=== PATIENT | female | born 1950 | race Caucasian/White ===

== ENCOUNTER 2018-09-23 11:26 | Emergency (ER) | payer MEDICARE ==
[2018-09-23] MEDS ORDERED: ASPIRIN 81 MG TABLET, CHEWABLE PO ONE (11:43)
[2018-09-23] MEDS ORDERED: ONDANSETRON HCL INJ/PF 4 MG/2 ML SDV IV ONE ×2 (11:43→13:07)
--- NOTE | 2018-09-23 11:45 | ER Document Report ---
ED Medical Screen (RME) - General Chief Complaint: Chest Pain Stated Complaint: CHEST PAIN Time Seen by Provider: 09/23/18 11:37 TRAVEL OUTSIDE OF THE [place] IN LAST 30 DAYS: No - HPI Notes: 09/23/18 11:45 Patient is a 67 yr old female that presents to the emergency department by private car for chief complaint of right-sided shoulder pain that radiates to her left arm started approximately 7:00 this morning, constant, denies any trauma. Patient has a medical history of stage IV metastatic breast cancer, diabetes, hypertension and hypercholesterolemia. Patient is [place] from [place] of [place]. Patient reports she does feel nauseous, no vomiting or diarrhea. No abdominal pain, no fevers and chills. Tried Advil without full relief. ROS: Other than noted above, the 12 point review of systems was reviewed with the patient and were negative, all pertinent findings are included in the HPI. PHYSICAL EXAMINATION: Vital signs reviewed. GENERAL: Well-appearing, well-nourished and in no acute distress. HEAD: Atraumatic, normocephalic. EYES: Pupils equal round extraocular movements intact, conjunctiva are normal. ENT: Nares patent NECK: Normal range of motion CV: Heart regular rate and rhythm LUNGS: No respiratory distress Musculoskeletal: Tenderness to right paraspinal to shoulder pain, li ismited ROM. normal range of motion NEUROLOGICAL: Normal speech PSYCH: Normal mood, normal affect. MDM: Patient seen and examined for rapid initial assessment. Vital signs reviewed. A comprehensive ED assessment and evaluation of the patient, analysis of test results and completion of the medical decision making process will be conducted by additional ED providers. *Note is created using voice recognition software and may contain spelling, syntax or grammatical errors. - Related Data Allergies/Adverse Reactions: No Known Allergies Allergy (Unverified 09/23/18 11:28) Physical Exam - Vital signs Vitals: Temp Pulse Resp BP Pulse Ox 98.1 F 72 18 154/90 H 98 09/23/18 11:28 09/23/18 11:28 09/23/18 11:28 09/23/18 11:28 09/23/18 11:28 Course - Vital Signs Vital signs: Temp Pulse Resp BP Pulse Ox 98.1 F 72 18 154/90 H 98 09/23/18 11:28 09/23/18 11:28 09/23/18 11:28 09/23/18 11:28 09/23/18 11:28
[2018-09-23 12:56] LABS: HEMATOCRIT 22.4 % (36.0-47.0); MEAN CORPUSCULAR HEMOGLOBIN 34.2 pg (27.0-33.4); MEAN CORPUSCULAR HGB CONC 35.6 g/dL (32.0-36.0); MEAN CORPUSCULAR VOLUME 96 fl (80-97); PLATELET COUNT 109 10^3/uL (150-450); RED BLOOD COUNT 2.33 10^6/uL (3.72-5.28); RED CELL DISTRIBUTION WIDTH 15.8 % (11.5-14.0)
[2018-09-23] MEDS ORDERED: FENTANYL CITRATE INJ/PF 100 MCG/2 ML AMPUL IV ONE ×2 (13:07→13:58)
[2018-09-23 13:19] LABS: ALANINE AMINOTRANSFERASE 25 U/L (9-52); ALBUMIN 3.6 g/dL (3.5-5.0); ALKALINE PHOSPHATASE 77 U/L (38-126); ANION GAP 8 (5-19); ASPARTATE AMINO TRANSFERASE 27 U/L (14-36); BILIRUBIN,DIRECT 0.2 mg/dL (0.0-0.4); BILIRUBIN,TOTAL 0.4 mg/dL (0.2-1.3); BLOOD UREA NITROGEN 27 mg/dL (7-20); CALCIUM 8.6 mg/dL (8.4-10.2); CARBON DIOXIDE 25 mmol/L (22-30); CHLORIDE 101 mmol/L (98-107); CREATINE KINASE 73 U/L (30-135); GLUCOSE 203 mg/dL (75-110); POTASSIUM 4.4 mmol/L (3.6-5.0)
[2018-09-23] MEDS ORDERED: NORMAL SALINE 1000 ML 1,000 ML IV ONE (13:24)
[2018-09-23 13:26] LABS: ABSOLUTE LYMPHOCYTES# (MANUAL) 0.8 10^3/uL (0.5-4.7); ABSOLUTE MONOCYTES # (MANUAL) 0.1 10^3/uL (0.1-1.4); BASOPHILS % (MANUAL) 0 % (0-2); EOSINOPHILS % (MANUAL) 2 % (0-6); LYMPHOCYTES % (MANUAL) 46 % (13-45); MONOCYTES % (MANUAL) 6 % (3-13); SEGMENTED NEUTROPHILS % (MAN) 46 % (42-78); TOTAL CELLS COUNTED 50
[2018-09-23 13:31] LABS: CREATINE KINASE MB 0.66 ng/mL (<4.55); TROPONIN I 0.024 ng/mL
[2018-09-23 13:34] LABS: ANISOCYTOSIS 2+; OVALOCYTES SLIGHT; POLYCHROMASIA SLIGHT
[2018-09-23 13:35] LABS: TEAR DROP CELLS SLIGHT
[2018-09-23 13:36] LABS: WHITE BLOOD COUNT 1.7 10^3/uL (4.0-10.5)
[2018-09-23 13:38] LABS: PLATELET COMMENT ADEQUATE
--- NOTE | 2018-09-23 14:25 | RADIOLOGY REPORT (SQ) ---
EXAM DESCRIPTION: CTA CHEST COMPLETED DATE/TIME: 09/23/2018 1:48 pm REASON FOR STUDY: right scapular pain, hx of breast ca w bone mets COMPARISON: None. TECHNIQUE: CT scan of the chest performed using helical scanning technique with dynamic intravenous contrast injection. Images reviewed with lung, soft tissue and bone windows. Reconstructed coronal and sagittal MPR images reviewed. Additional 3 dimensional post-processing performed to develop Maximal Intensity Projection images (NV P). All images stored on PACS. All CT scanners at this facility use dose modulation, iterative reconstruction, and/or weight based d osing when appropriate to reduce radiation dose to as low as reasonably achievable (ALARA). [facility]: Dose Right [facility]: CareDose [facility]: Dose Right [facility]: Teradose 4D [facility]: [employer] CONTRAST TYPE AND DOSE: contrast/concentration: Isovue 350.00 mg/ml; Total Contrast Delivered: 70.0 ml; Total Saline Delivered: 67.0 ml Contrast bolus optimized for the pulmonary arteries and thoracic aorta. RENAL FUNCTION: Creatinine 0.9 RADIATION DOSE: CT Rad equipment meets quality standard of care and radiation dose reduction techniq ues were employed. CTDIvol: 13.2 - 14.3 mGy. DLP: 526 mGy-cm. . LIMITATIONS: None. FINDINGS: LUNGS AND PLEURA: No acute infiltrates. No worrisome pulmonary nodules. Trace right pleu ral effusion layers dependently in the right chest. No pneumothorax. AORTA AND GREAT VESSELS: No aneurysm or thoracic aortic dissection HEART: No pericardial effusion. No significant coronary artery calcifications. PULMONARY ARTERIES: No emboli visualized in the main pulmonary arteries or the segmental branches. HILAR AND MEDIASTINAL STRUCTURES: No identified masses or abnormal nodes. HARDWARE: None in the chest. UPPER ABDOMEN: Small hiatal hernia. Fatty liver. Splenic granulomas. THYROID AND OTHER SOFT TISSUES: No masses. No adenopathy. BONES: Diffuse bony metastatic lesions throughout the sternum, clavicles, spine. No thoracic sylvie luan deformities are identified. Old healed posterior right 9th rib fracture. Nonunited posterior l eft 11th rib fracture. 3D MIPS: Confirm above findings. OTHER: No other significant finding. IMPRESSION: No CT angio evidence of acute pulmonary emboli or thoracic aortic dissection. Extensive bony metastatic disease Trace right pleural effusion COMMENT: Quality ID # [id number]: Final reports with documentation of one or more dose reduction techniques (e.g., Automated exposure control, adjustment of the mA and/or kV according to patient size, use of iterative reconstruction technique) TECHNICAL DOCUMENTATION: JOB ID: [id number] [employer]- All Rights Reserved Reading location - IP/workstation name: [email or web address]
--- NOTE | 2018-09-23 14:58 | EKG REPORT ---
SEVERITY:- OTHERWISE NORMAL ECG - SINUS RHYTHM : Confirmed by: Jolanta Gray 23-Sep-2018 14:57:34
[2018-09-23] MEDS ORDERED: HYDROMORPHONE HCL INJ/PF 2 MG/ML AMPULE IV ONE (15:27)
[2018-09-23] MEDS ORDERED: DIAZEPAM INJ 10 MG/2 ML DISP.SYRIN IV ONE (15:27)
--- NOTE | 2018-09-23 15:33 | ER Document Report ---
ED General - General Chief Complaint: Chest Pain Stated Complaint: CHEST PAIN Time Seen by Provider: 09/23/18 11:37 Mode of Arrival: Ambulatory Information source: Patient TRAVEL OUTSIDE OF THE [place].S[place] 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 She has known metastasis to her sternum, ribs, shoulders, brain, spine, and femurs. She states she has never had this pain before. She denies any known trauma or injury. Pain is not worse with movement. It is better with rest. She has taken Advil without relief of her symptoms. She was previously on pain management however stopped taking the narcotic pain medicine months ago as she did not want to take narcotics anymore. She has otherwise managed her pain with [id number] medications. She states her white count usually runs 2. She denies prior known history of neutropenia. She denies fever, cough, vomiting, diarrhea, chest pain, shortness of breath, abdominal pain, UTI symptoms or vaginal complaints. Has had a radi prince hysterectomy. No recent antibiotics or steroids. No changes in medication. He has not sought care until now. She is just down here visiting from [place] and follows with an oncologist there. She denies any pain anywhere else. No ripping or tearing sensation. No other complaints at this time. She has no prior history of CAD, FL, PE, TIA, CVA, or CHF. She denies any other recent long distance travel, immobilization, hemoptysis, calf pain/swelling, exogenous hormone use, or recent surgery. No blood thinners. Associated symptoms: None Exacerbated by: denies: Supine, Sitting, Standing, Movement Relieved by: Remaining still Similar symptoms previously: No Recently seen / treated by doctor: No - Related Data Allergies/Adverse Reactions: No Known Allergies Allergy (Unverified 09/23/18 11:28) Past Medical History - General Information source: Patient - Social History Smoking Status: Unknown if Ever Smoked Chew tobacco use (# tins/day): No Frequency of alcohol use: None Drug Abuse: None Lives with: Family Family History: Other - unknown Patient has suicidal ideation: No Patient has homicidal ideation: No - Past Medical History Cardiac Medical History: Reports: Hx Hypercholesterolemia, Hx Hypertension, Other - breast cancer with mets to brain and bone vitamin B12 anemia Other: Vitamin D deficiency Other: prior hx of broken ribs EENT Medical History: Reports: None Neurological Medical History: Reports: None Endocrine Medical History: Reports: None Renal/ Medical History: Reports: Other - uterine CA 2017 Malignancy Medical History: Reports: Hx Bone Cancer, Hx Breast Cancer, Other - uterine GI Medical History: Reports: None Skin Medical History: Reports None Psychiatric Medical History: Reports: None Traumatic Medical History: Reports: Hx Fractures Past Surgical History: Reports: Hx Hysterectomy Review of Systems - Review of Systems Constitutional: No symptoms reported. denies: Fever EENT: No symptoms reported Cardiovascular: No symptoms reported. denies: Chest pain, Palpitations, Dyspnea, Dizziness Respiratory: No symptoms reported. denies: Cough, Hurts to breathe, Hemoptysis, Short of breath, Wheezing Gastrointestinal: No symptoms reported Genitourinary: No symptoms reported Female Genitourinary: No symptoms reported Musculoskeletal: Back pain, Muscle pain. denies: Joint swelling, Neck pain, Deformity, Leg swelling, Ankle swelling Skin: No symptoms reported Hematologic/Lymphatic: No symptoms reported Neurological/Psychological: No symptoms reported -: Yes All other systems reviewed and negative Physical Exam - Vital signs Vitals: Temp Pulse Resp BP Pulse Ox 98.1 F 72 18 154/90 H 98 09/23/18 11:28 09/23/18 11:28 09/23/18 11:28 09/23/18 11:28 09/23/18 11:28 Temp Pulse Resp BP Pulse Ox 98.1 F 72 14 151/77 H 96 09/23/18 11:28 09/23/18 11:28 09/23/18 15:01 09/23/18 15:01 09/23/18 15:01 >>>> PHYSICAL_EXAM: GENERAL_APPEARANCE: well_nourished, alert, cooperative, no_acute_distress, no_obvious_discomfort. pleasant, smiling, speaking in full sentences, in no sign of pain or resp distress, VITALS: reviewed, see vital signs table. HEAD: no_swelling\tenderness on the head. normocephalic. atraumatic. no valdes signs. no raccoons eyes. EYES: PERRL, EOMI, conjunctiva_clear. NOSE: no_nasal_discharge. MOUTH: (-)decreased moisture. THROAT: no_tonsilar_inflammation, no_airway_obstruction. no_lymphadenopathy NECK: supple, no_neck_tenderness, (-)thyromegaly. full rom. full strength. no jvd. no carotid bruit. no meningeal signs. no sign of central cord syndrome. BACK: no_midline back_tenderness. no step offs or deformities. mild ttp over right rhomboids that reproduces pts pain exactly. no overlying skin changes. spasm noted. CHEST_WALL: no_chest_tenderness. no overlying skin changes LUNGS: no_wheezing, ctab (-)accessory muscle use, good air exchange bilateral . HEART: normal_rate, normal_rhythm, no_murmur, ABDOMEN: normal_BS, soft, no_abd_tenderness, (-)guarding, (-)rebound, no distension or peritoneal signs. no cva ttp EXTREMITIES: strength 5/5 in all_extremities, good pulses in all_extremities, no_swelling\tenderness in the extremities, no_edema. full rom. normal gait. good pulses. brisk cap refill. good hand tax consultant. neg naz sign NEURO: motor and sensation intact, cranial nerves 2-12 intact, cerebellar fxn intact SKIN: warm, dry, good_color, no_rash. MENTAL_STATUS: speech_clear, oriented_X_3, normal_affect, responds_appropriately to questions. Interpretation: Normal Course - Re-evaluation Re-evalutation: 09/23/18 16:41 Labs reviewed and notable for a leukopenia, neutropenia, but were otherwise unremarkable. CTA done to rule PE given hx of ca and showed nothing acute and only chronic changes per radiology and reviewed by myself. EKG unremarkable and reviewed with Dr. Marquez. She responded well to medications given here and was pain controlled. sx likely musculoskeletal as they are reproducible on exam. According to the [place] drug database she has not received any narcotics since 02/11/2017. We will discharge her with a few oxycodone and Robaxin as she states that Vicodin and Ultram do not work secondary to her previously being on pain management. Advised her to follow-up closely with her oncologist and primary care doctor the next 1 to 2 days for recheck. She is given a copy of her labs and imaging to take back to her [id number] providers. Strict ER precautions given. Vitals stable. Patient well-appearing. Neuro nonfocal. Patient understands and agrees with plan. On reexam, pt improved with tx listed. remained stable. nontoxic. well appearing. pain controlled. tolerating po. requesting to go home. case discussed with ER Attending, Dr. marquez, who directed and agrees with plan of care and advised no further workup indicated at this time and pt is stable for dc home with close f/u with pcp/specialist. Documentation achieved through voice recording which my lead to some occasional accidental typographical errors. Extensive efforts have been made to proof read documentation to make sure these are the least as possible. - Vital Signs Vital signs: Temp Pulse Resp BP Pulse Ox 98 F 72 15 119/74 97 09/23/18 17:19 09/23/18 11:28 09/23/18 17:00 09/23/18 17:00 09/23/18 17:01 09/23/18 16:47 Temp Pulse Resp BP Pulse Ox 98.1 F 72 12 111/71 99 09/23/18 11:28 09/23/18 11:28 09/23/18 16:30 09/23/18 16:30 09/23/18 16:30 Intake & Output 09/22/18 09/23/18 09/24/18 06:59 06:59 06:59 Weight 71.6 kg Chest/Abdomen CTA 09/23/18 13:22 IMPRESSION: No CT angio evidence of acute pulmonary emboli or thoracic aortic dissection. Extensive bony metastatic disease Trace right pleural effusion 10/05/18 16:57 Category Date Time Status Continuous Cardiac Monitoring (ED) NOW Care 09/23/18 11:37 Completed EKG Documentation STAT Care 09/23/18 11:28 Completed IV [Saline Lock (ED)] NOW Care 09/23/18 11:44 Active Saline Lock (ED) NOW Care 09/23/18 11:37 Active CTA CHEST [CT] Stat Exams 09/23/18 13:22 Completed ADD ON TESTING BLD IN LAB [CHEM] Stat Lab 09/23/18 12:27 Completed CBC WITH DIFF [HEME] Stat Lab 09/23/18 12:27 Completed COMPREHENSIVE METABOLIC PANEL [CHEM] Stat Lab 09/23/18 12:27 Completed CREATINE KINASE MB [CHEM] Stat Lab 09/23/18 12:27 Completed CREATINE KINASE [CHEM] Stat Lab 09/23/18 12:27 Completed LIPASE [CHEM] Stat Lab 09/23/18 12:27 Completed MANUAL DIFFERENTIAL [HEME] Stat Lab 09/23/18 12:27 Completed TROPONIN I [CHEM] Stat Lab 09/23/18 12:27 Completed URINALYSIS [URIN] Stat Lab 09/23/18 15:40 Completed Aspirin [Aspirin 81 mg Chewable Tablet] Med 09/23/18 11:43 Discontinued 324 mg PO NOW ONE Diazepam [Valium Inj 10 mg/2 ml Disp.syrin] Med 09/23/18 15:27 Discontinued 5 mg IV NOW ONE Fentanyl Citrate/Pf [Sublimaze Inj/Pf 100 Mcg/2 ml Med 09/23/18 13:07 Discontinued Ampule] 50 mcg IV NOW ONE Fentanyl Citrate/Pf [Sublimaze Inj/Pf 100 Mcg/2 ml Med 09/23/18 13:58 Disconti nued Ampule] 50 mcg IV NOW ONE Hydromorphone HCl/Pf [Dilaudid Inj/Pf 2 mg/ml Ampule] Med 09/23/18 15:27 Discontinued 1 mg IV NOW ONE Normal Saline 1000 ml [NaCl 0.9% 1000 ml IV Soln] 1,000 Med 09/23/18 13:24 Discontinued ml IV BOLUS Ondansetron HCl/Pf [Zofran Inj/Pf 4 mg/2 ml Sdv] Med 09/23/18 13:07 Discontinued 4 mg IV NOW ONE Ondansetron HCl/Pf [Zofran Inj/Pf 4 mg/2 ml Sdv] Med 09/23/18 11:43 Discontinued 8 mg IV NOW ONE EKG ER ONLY [ER] Stat Oth 09/23/18 Completed - Laboratory Result Diagrams: 09/23/18 12:27 09/23/18 12:27 Laboratory results interpreted by me: 09/23/18 09/23/18 09/23/18 12:27 12:27 12:42 WBC 1.7 L RBC 2.33 L Hgb 8.0 L Hct 22.4 L MCH 34.2 H RDW 15.8 H Plt Count 109 L Lymphocytes % (Manual) 46 H Abs Neuts (Manual) 0.8 L Sodium 134.3 L BUN 27 H Glucose 203 H POC Glucose 240 H Total Protein 6.0 L Urine Glucose (UA) Urine Ascorbic Acid 09/23/18 15:40 WBC RBC Hgb Hct MCH RDW Plt Count Lymphocytes % (Manual) Abs Neuts (Manual) Sodium BUN Glucose POC Glucose Total Protein Urine Glucose (UA) 50 H Urine Ascorbic Acid 20 H 09/23/18 16:48 09/23/18 12:27 09/23/18 12:27 MCV 96 fl (80-97) 09/23/18 12:27 MCH 34.2 pg (27.0-33.4) H 09/23/18 12:27 MCHC 35.6 g/dL (32.0-36.0) 09/23/18 12:27 RDW 15.8 % (11.5-14.0) H 09/23/18 12:27 Seg Neutrophils % Not Reportable 09/23/18 12:27 Lymphocytes % Not Reportable 09/23/18 12:27 Monocytes % Not Reportable 09/23/18 12:27 Eosinophils % Not Reportable 09/23/18 12:27 Basophils % Not Reportable 09/23/18 12:27 Absolute Neutrophils Not Reportable 09/23/18 12:27 Absolute Lymphocytes Not Reportable 09/23/18 12:27 Absolute Monocytes Not Reportable 09/23/18 12:27 Absolute Eosinophils Not Reportable 09/23/18 12:27 Absolute Basophils Not Reportable 09/23/18 12:27 Chloride 101 mmol/L (98-107) 09/23/18 12:27 Carbon Dioxide 25 mmol/L (22-30) 09/23/18 12:27 Anion Gap 8 (5-19) 09/23/18 12:27 Est GFR ( Amer) > 60 (>60) 09/23/18 12:27 Est GFR (Non-Af Amer) > 60 (>60) 09/23/18 12:27 Glucose 203 mg/dL (75-110) H 09/23/18 12:27 Calcium 8.6 mg/dL (8.4-10.2) 09/23/18 12:27 Total Bilirubin 0.4 mg/dL (0.2-1.3) 09/23/18 12:27 AST 27 U/L (14-36) 09/23/18 12:27 ALT 25 U/L (9-52) 09/23/18 12:27 Alkaline Phosphatase 77 U/L (38-126) 09/23/18 12:27 Total Protein 6.0 g/dL (6.3-8.2) L 09/23/18 12:27 Albumin 3.6 g/dL (3.5-5.0) 09/23/18 12:27 Lipase 65.5 U/L (23-300) 09/23/18 12:27 Urine Color YELLOW 09/23/18 15:40 Urine Appearance CLEAR 09/23/18 15:40 Urine pH 5.0 (5.0-9.0) 09/23/18 15:40 Ur Specific [place] 1.050 09/23/18 15:40 Urine Protein NEGATIVE mg/dL (NEGATIVE) 09/23/18 15:40 Urine Glucose (UA) 50 mg/dL (NEGATIVE) H 09/23/18 15:40 Urine Ketones NEGATIVE mg/dL (NEGATIVE) 09/23/18 15:40 Urine Blood NEGATIVE (NEGATIVE) 09/23/18 15:40 Urine Nitrite NEGATIVE (NEGATIVE) 09/23/18 15:40 Ur Leukocyte Esterase NEGATIVE (NEGATIVE) 09/23/18 15:40 Urine WBC (Auto) 0 /HPF 09/23/18 15:40 09/23/18 09/23/18 12:27 12:27 Creatine Kinase 73 CK-MB (CK-2) 0.66 Troponin I 0.024 - Diagnostic Test Radiology reviewed: Image reviewed, Reports reviewed - EKG Interpretation by Me EKG shows normal: Sinus rhythm - no stemi. reviewed with dr marquez Rate: Normal - 69 bpm Rhythm: NSR. No: A.Fib, V.Tach [place]/QRS: No: LBBB When compared to previous EKG there are: Previous EKG unavailable Discharge - Discharge Clinical Impression: Right-sided thoracic back pain Qualifiers: Chronicity: acute Qualified Code(s): M54.6 - Pain in thoracic spine Neutropenia Qualifiers: Neutropenia type: secondary to cancer chemotherapy Qualified Code(s): D70.1 - Agranulocytosis secondary to cancer chemotherapy; T45.1X5A - Adverse effect of antineoplastic and immunosuppressive drugs, initial encounter Leukopenia Qualifiers: Leukopenia type: neutropenia Neutropenia type: secondary to cancer chemotherapy Qualified Code(s): D70.1 - Agranulocytosis secondary to cancer chemotherapy; T45.1X5A - Adverse effect of antineoplastic and immunosuppressive drugs, initial encounter Anemia Qualifiers: Anemia type: unspecified type Qualified Code(s): D64.9 - Anemia, unspecified Condition: Good Disposition: HOME, SELF-CARE Instructions: Abnormality of Blood Cells, New ([facility]), Chest Wall Pain ([facility]), Chronic Pain Control ([facility]) Additional Instructions: Follow-up with your PCP/oncologist in 1 to 2 days for recheck and repeat blood work and further work-up. Return to the ER for any worsening symptoms. Do not drive, operate machinery, or take Tylenol with the pain medication or muscle relaxers. Ice/heat to the area. You can also use lidocaine patches. Med ication you are receiving a sedating. Take the medication as prescribed. You have been given a copy of your lab work and imaging to take to your providers for referencing. Prescriptions: Methocarbamol [Robaxin 500 mg Tablet] 1,000 mg PO QID PRN #40 tablet PRN Reason: Oxycodone HCl/Acetaminophen [Percocet 5-325 mg Tablet] 1 - 2 tab PO Q4H PRN #15 tablet PRN Reason:
[2018-09-23 15:56] LABS: APPEARANCE,URINE CLEAR; BILIRUBIN,URINE NEGATIVE (NEGATIVE); COLOR,URINE YELLOW; GLUCOSE, URINE 50 mg/dL (NEGATIVE); KETONES,URINE NEGATIVE (NEGATIVE); LEUKOCYTE ESTERASE,URINE NEGATIVE (NEGATIVE); NITRITE,URINE NEGATIVE (NEGATIVE); PROTEIN,URINE NEGATIVE (NEGATIVE); UROBILINOGEN,URINE NEGATIVE mg/dL (<2.0)
[2018-09-23 17:19] VITALS: BP 119/74
[2018-09-24 10:15] LABS: PATH REVIEW PATHOLOGIST REVIEWED
== END 2018-09-23 17:20 | disposition home or self-care (01) ==
LOC: ER 11:26
DX: M54.6 Pain in thoracic spine (principal); D70.1 Agranulocytosis secondary to cancer chemotherapy; T45.1X5A Adverse effect of antineoplastic and immunosuppressive drugs, initial encounter; C50.919 Malignant neoplasm of unspecified site of unspecified female breast; C79.51 Secondary malignant neoplasm of bone; C79.31 Secondary malignant neoplasm of brain; D64.9 Anemia, unspecified; I10 Essential (primary) hypertension; J90 Pleural effusion, not elsewhere classified
CPT/HCPCS: 93005; 96376; 99284; 96361; 96374; 96375; 36415; 82553; 82962; 82550; 83690; 85025; 80053; 81001; 84484; 71275; 93010; A9270; J3360; J3010; J1170; J2405; J7030